=== PATIENT | male | born 1960 | race Caucasian/White ===

== ENCOUNTER 2023-02-12 16:44 | Inpatient (IN) | payer MEDICAID ==
[~2023-02-12] VITALS: Ht 175.3 cm; Wt 91.3 kg
[2023-02-12] MEDS ORDERED: normal saline 1000ML IV soln IVB ONE (17:05)
[2023-02-12] MEDS ORDERED: normal saline 1000ml 1,000 ML IV ONE (17:05)
[2023-02-12 17:40] LABS: BASOPHILS % (AUTO) 0.3 % (0-1); EOSINOPHILS % (AUTO) 0.1 % (0-6); HEMATOCRIT 40.6 % (42.0-52.0); HEMOGLOBIN 12.8 g/dl (14.0-17.9); LYMPHOCYTES # (AUTO) 0.7 X10'3 (1.1-4.8); LYMPHOCYTES % (AUTO) 5.6 % (21-51); MEAN CORPUSCULAR HEMOGLOBIN 24.7 PG (27.0-31.0); MEAN CORPUSCULAR HGB CONC 31.5 g/dL (33.0-36.5); MEAN CORPUSCULAR VOLUME 78.3 FL (78-98); MEAN PLATELET VOLUME 8.4 FL (7.4-10.4); MONOCYTES # (AUTO) 0.6 X10'3 (0-0.9); MONOCYTES % (AUTO) 5.1 % (2-12); NEUTROPHILS # (AUTO) 10.8 X10'3 (1.8-7.7); NEUTROPHILS % (AUTO) 88.9 % (42-75); PLATELET COUNT 241 X10'3 (140-440); RED BLOOD COUNT 5.19 X10'6 (4.70-6.10); RED CELL DISTRIBUTION WIDTH 18.9 % (11.5-14.5); WHITE BLOOD COUNT 12.2 X10'3 (4.5-11.0)
[2023-02-12] MEDS ORDERED: meperidine/PF 50mg/ml syringe IV ONE (18:00)
[2023-02-12 18:03] LABS: ALANINE AMINOTRANSFERASE 21 U/L (12-78); ALBUMIN 3.5 G/DL (3.4-5.0); ALBUMIN/GLOBULIN RATIO 0.9 (1.1-1.5); ALKALINE PHOSPHATASE 90 IU/L (46-116); ANION GAP 10 (8-16); ANISOCYTOSIS 2+; ASPARTATE AMINO TRANSFERASE 24 U/L (10-37); BILIRUBIN,TOTAL 0.5 MG/DL (0.1-1.0); BLOOD UREA NITROGEN 8 MG/DL (7-18); BUN/CREATININE RATIO 7.5 (10.0-20.0); CHLORIDE 103 MMOL/L (99-107); CREATININE 1.07 MG/DL (0.60-1.10); GLUCOSE 136 MG/DL (70-104); HYPOCHROMASIA 1+; MICROCYTOSIS 1+; PLATELET ESTIMATE NORMAL; POLYCHROMASIA FEW; POTASSIUM 4.4 MMOL/L (3.5-5.1); SODIUM 136 MMOL/L (135-145); TOTAL CARBON DIOXIDE 23.1 MMOL/L (24-32); TOTAL CELLS COUNTED 100; TOTAL PROTEIN 7.3 G/DL (6.4-8.2); eGFR 70 ML/MIN
[2023-02-12 18:09] LABS: ETHANOL < 0.010 GM/DL (0.0-0.010); LIPASE 55 U/L (73-393)
[2023-02-12] MEDS ORDERED: mag hydrox/Alum hydrox/simeth 30ml oral suspension PO PRN (18:10)
[2023-02-12] MEDS ORDERED: acetaminophen 325mg tablet PO PRN ×2 (18:10)
[2023-02-12] MEDS ORDERED: magnesium Cl slow-release 64mg tablet PO PRN (18:10)
[2023-02-12] MEDS ORDERED: potassium Cl 40MEQ/1/2NS 520ml 520 ML IV PRN (18:10)
[2023-02-12] MEDS ORDERED: magnesium 2GM in 50ml NS 50 ML IV PRN (18:10)
[2023-02-12] MEDS ORDERED: potassium Cl 20 mEq SR tablet PO PRN ×2 (18:10)
[2023-02-12] MEDS ORDERED: magnesium 4gm in 100ml NS 100 ML IV PRN (18:10)
[2023-02-12 18:28] LABS: APTT 26 SECONDS (22-32)
[2023-02-12] MEDS ORDERED: piperacillin/tazo 4.5gm/100ml 100 ML IV ONE (18:30)
[2023-02-12] MEDS ORDERED: morphine 2 MG/ML inj. syringe IV PRN (18:55)
[2023-02-12] MEDS ORDERED: HYDROcodone/acetaminophen 5mg/325mg tablet PO PRN (18:55)
[2023-02-12] MEDS ORDERED: diphenhydrAMINE 25mg capsule PO PRN (19:10)
[2023-02-12] MEDS: normal saline 1000ml 1,000 ML IV SCH ×2 (19:18→23:20)
[2023-02-12] MEDS: pantoprazole 40mg Tablet.DR PO SCH ×2 (19:18→20:00)
[2023-02-12] MEDS: docusate sod 100mg capsule PO SCH (20:00)
[2023-02-12] MEDS: ondansetron/PF 4mg/2ml inj IV PRN (20:48)
[2023-02-12] MEDS: morphine 2 MG/ML inj. syringe IV PRN (20:48)
[2023-02-12] MEDS: enoxaparin 40mg/0.4ml syringe SQ SCH (21:02)
--- NOTE | 2023-02-12 22:45 | NUR ---
Patient in room PCU 3028. I have received report from Shane GONSALES RN and had the opportunity to ask questions and assume patient care.
--- NOTE | 2023-02-12 22:46 | NUR ---
REPORT CALLED TO FLOOR NURSE DERIAN SPENCER, TX TO ROOM 3026E BY TECH
[2023-02-12 23:00] VITALS: BP 168/83
[2023-02-12] MEDS: piperacillin/tazo 3.375gm/50ml 50 ML IV SCH (23:44)
[2023-02-13] VITALS (20 sets, daily range): BP systolic 86–186; BP diastolic 31–92
[2023-02-13] MEDS: morphine 2 MG/ML inj. syringe IV PRN ×4 (01:39→23:30)
[2023-02-13] MEDS: piperacillin/tazo 3.375gm/50ml 50 ML IV SCH ×2 (06:55→16:00)
[2023-02-13] MEDS: pantoprazole 40mg Tablet.DR PO SCH (06:55)
[2023-02-13] MEDS: nicotine 14mg patch - 24hr TD SCH (06:56)
[2023-02-13] MEDS: docusate sod 100mg capsule PO SCH (06:56)
--- NOTE | 2023-02-13 07:03 | NUR ---
Problems reprioritized. Patient report given, questions answered & plan of care reviewed with Mihai SPENCER.
[2023-02-13 07:30] LABS: ALANINE AMINOTRANSFERASE 19 U/L (12-78); ALBUMIN/GLOBULIN RATIO 0.8 (1.1-1.5); ALKALINE PHOSPHATASE 82 IU/L (46-116); ANION GAP 8 (8-16); ASPARTATE AMINO TRANSFERASE 26 U/L (10-37); BILIRUBIN,TOTAL 0.7 MG/DL (0.1-1.0); BLOOD UREA NITROGEN 7 MG/DL (7-18); BUN/CREATININE RATIO 6.3 (10.0-20.0); CALCIUM 8.5 MG/DL (8.5-10.1); CHLORIDE 101 MMOL/L (99-107); CREATININE 1.11 MG/DL (0.60-1.10); GLUCOSE 114 MG/DL (70-104); SODIUM 133 MMOL/L (135-145); TOTAL PROTEIN 6.6 G/DL (6.4-8.2); eGFR 67 ML/MIN
[2023-02-13 08:59] LABS: BASOPHILS # (AUTO) 0.1 X10'3 (0-0.2); BASOPHILS % (AUTO) 0.5 % (0-1); EOSINOPHILS % (AUTO) 0.2 % (0-6); HEMATOCRIT 36.2 % (42.0-52.0); HEMOGLOBIN 11.5 g/dl (14.0-17.9); LYMPHOCYTES # (AUTO) 0.6 X10'3 (1.1-4.8); LYMPHOCYTES % (AUTO) 5.6 % (21-51); MEAN CORPUSCULAR HEMOGLOBIN 24.6 PG (27.0-31.0); MEAN CORPUSCULAR HGB CONC 31.7 g/dL (33.0-36.5); MEAN CORPUSCULAR VOLUME 77.6 FL (78-98); MEAN PLATELET VOLUME 8.5 FL (7.4-10.4); MONOCYTES % (AUTO) 8.6 % (2-12); NEUTROPHILS # (AUTO) 9.9 X10'3 (1.8-7.7); NEUTROPHILS % (AUTO) 85.1 % (42-75); PLATELET COUNT 207 X10'3 (140-440); RED BLOOD COUNT 4.67 X10'6 (4.70-6.10); RED CELL DISTRIBUTION WIDTH 18.8 % (11.5-14.5); WHITE BLOOD COUNT 11.6 X10'3 (4.5-11.0)
[2023-02-13] MEDS ORDERED: lisinopril 10 MG tablet PO ONE (09:10)
[2023-02-13 10:05] LABS: BASOPHILS % (AUTO) 0.1 % (0-1); EOSINOPHILS % (AUTO) 0.1 % (0-6); HEMATOCRIT 37.5 % (42.0-52.0); HEMOGLOBIN 12.1 g/dl (14.0-17.9); LYMPHOCYTES # (AUTO) 0.3 X10'3 (1.1-4.8); MEAN CORPUSCULAR HEMOGLOBIN 25.2 PG (27.0-31.0); MEAN CORPUSCULAR HGB CONC 32.4 g/dL (33.0-36.5); MEAN CORPUSCULAR VOLUME 77.8 FL (78-98); MEAN PLATELET VOLUME 8.6 FL (7.4-10.4); MONOCYTES % (AUTO) 0.7 % (2-12); NEUTROPHILS # (AUTO) 4.8 X10'3 (1.8-7.7); NEUTROPHILS % (AUTO) 94.1 % (42-75); PLATELET COUNT 216 X10'3 (140-440); RED BLOOD COUNT 4.82 X10'6 (4.70-6.10); RED CELL DISTRIBUTION WIDTH 18.8 % (11.5-14.5); WHITE BLOOD COUNT 5.2 X10'3 (4.5-11.0)
[2023-02-13] MEDS ORDERED: normal saline 500ml IV soln 500 ML IV ONE (10:30)
[2023-02-13] MEDS ORDERED: NO HOME MEDS (13:10)
[2023-02-13] MEDS: normal saline 1000ml 1,000 ML IV SCH (14:19)
[2023-02-13] MEDS ORDERED: BUPIVAcaine/PF 2.5 mg/ml (0.25%) 30ml vial ONE (16:43)
[2023-02-13] MEDS ORDERED: morphine 2 MG/ML inj. syringe IV PRN (16:50)
[2023-02-13] MEDS ORDERED: fentaNYL/PF 50MCG/1 ML 2ML syringe IV PRN (16:50)
[2023-02-13] MEDS ORDERED: ringers solution, lacted 1,000 ML IV SCH (16:50)
[2023-02-13] MEDS ORDERED: ondansetron/PF 4mg/2ml inj IV PRN (16:50)
[2023-02-13] MEDS ORDERED: labetalol 20mg/4ml (5mg/ml) syringe IV PRN (16:50)
[2023-02-13] MEDS ORDERED: hydrALAZINE 20mg/ml inj. IV PRN (16:50)
[2023-02-13] MEDS ORDERED: fentaNYL/PF 50MCG/1 ML 2ML syringe ONE ×3 (16:56→19:58)
[2023-02-13] MEDS ORDERED: midazolam 1 mg/ML 2ml injection ONE (16:56)
[2023-02-13] MEDS ORDERED: rocuronium 10mg/ml inj IV ONE ×2 (17:09→18:11)
[2023-02-13] MEDS ORDERED: LIDOcaine 2% (20mg/ml) 5ml vial ONE (17:09)
[2023-02-13] MEDS ORDERED: propofol inj 20 ML IV ONE (17:09)
[2023-02-13] MEDS ORDERED: ondansetron/PF 4mg/2ml inj ONE (17:10)
[2023-02-13] MEDS ORDERED: ceFAZolin 1000mg inj ONE ×2 (17:14)
[2023-02-13] MEDS ORDERED: phenylephrine 10mg/ml inj. -priapism dosing ONE (17:51)
[2023-02-13] MEDS ORDERED: dexmedetomidine 200mcg/2ml inj. IV ONE (17:54)
[2023-02-13] MEDS ORDERED: sugammadex 200mg/2ml injection IV ONE (17:54)
[2023-02-13] MEDS ORDERED: glycopyrrolate 0.2mg/ml inj ONE (19:56)
[2023-02-13] MEDS ORDERED: neostigmine methylsulfate 1 MG/ML 10ml vial ONE (19:56)
[2023-02-13] MEDS ORDERED: naloxone 0.4 mg/ml inj IV PRN (20:00)
[2023-02-13] MEDS: morphine 4 MG/ML inj SYRINge IV PRN ×3 (20:22→21:35)
[2023-02-13] MEDS: fentaNYL/PF 50MCG/1 ML 2ML syringe IV PRN ×3 (20:24→21:57)
[2023-02-13 21:38] LABS: ABG BASE EXCESS -6.7 mmol/L (-2.0-2.0); ABG HCO3 18.5 mmol/L (22.0-26.0); ABG OXYGEN SATURATION 90.5 % (94-97); ABG PCO2 (T) 36.1 mmHg (35.0-48.0); FCOHb 0.9 % (0.0-3.9); FLOW 10 L/min; FMetHb 0.3 % (0.0-1.5); FO2Hb 89.4 % (94-97); PATIENT TEMPERATURE 37.1; TOTAL HEMOGLOBIN 11.1 G/dl (14.0-17.9)
--- NOTE | 2023-02-13 22:09 | NUR ---
PATIENT TAKEN TO ICU PER DR SCHULTZ. U WILL SEND ALL BELONGINGS TO NEW ROOM.TRANSPORTED ON MONITORS AND HOOKED UP TO ICU MONITORS IN ROOM AND REPORT GIVEN TO RN WHO HAS TAKEN OVER PATIENT CARE. Addendum: 02/13/23 at 2220 by Mariela Moreno RN Amended: Links added.
--- NOTE | 2023-02-13 22:45 | NUR ---
received patient (pt) from recovery room to . Report and chart received from Shabnam SPENCER and questions answered. Pt transferred to ICU bed, placed on monitors, and supplemental O2 continued at 8LPM simple mask. Pt a little groggy but able A&O x4, moves all extremities, and CSM intact. Pt's pain is controlled at this time. 4 lap incision sites present on abdomen, dressings clean, dry, and intact. VICTOR HUGO drain present to right upper quadrant draining moderate amount of merlos output. Dr. Anaya arrived at bedside to check on pt. He was updated on VICTOR HUGO output received orders Addendum: 02/14/23 at 0453 by Masha Laws RN parameters to maintain SBP greater than 90mmHg and/or MAP greater than 70mmHg.
[2023-02-14] VITALS (25 sets, daily range): BP systolic 88–112; BP diastolic 44–67
[2023-02-14] MEDS: enoxaparin 40mg/0.4ml syringe SQ SCH (00:07)
[2023-02-14] MEDS: pantoprazole 40mg Tablet.DR PO SCH ×2 (00:07→08:07)
[2023-02-14] MEDS: docusate sod 100mg capsule PO SCH ×2 (00:07→08:07)
[2023-02-14] MEDS: normal saline 1000ml 1,000 ML IV SCH ×2 (00:10→15:19)
[2023-02-14] MEDS: piperacillin/tazo 3.375gm/50ml 50 ML IV SCH ×2 (00:21→08:07)
[2023-02-14] MEDS ORDERED: NORepinephrine 8mg/ 250ml NS 250 ML IV PRN (00:35)
[2023-02-14] MEDS: ondansetron/PF 4mg/2ml inj IV PRN (01:25)
[2023-02-14] MEDS: HYDROcodone/acetaminophen 10/325mg tab PO PRN ×5 (01:26→23:12)
--- NOTE | 2023-02-14 01:45 | NUR ---
Pt able to sleep off and on. He wakes easily and answers questions appropriately. Pt is painful but morphine does help. Pt educated on splinting his abdomen when coughing which is also helping with the pain. Due to pt's BP being decreased Levophed started per Dr. Anaya's order.
[2023-02-14] MEDS: morphine 2 MG/ML inj. syringe IV PRN ×4 (03:36→18:59)
[2023-02-14 06:29] LABS: BASOPHILS % (AUTO) 0.2 % (0-1); EOSINOPHILS % (AUTO) 0 % (0-6); HEMATOCRIT 36.6 % (42.0-52.0); HEMOGLOBIN 11.4 g/dl (14.0-17.9); LYMPHOCYTES # (AUTO) 0.5 X10'3 (1.1-4.8); LYMPHOCYTES % (AUTO) 3.6 % (21-51); MEAN CORPUSCULAR HGB CONC 31.2 g/dL (33.0-36.5); MEAN CORPUSCULAR VOLUME 80.2 FL (78-98); MEAN PLATELET VOLUME 8.8 FL (7.4-10.4); MONOCYTES # (AUTO) 0.9 X10'3 (0-0.9); MONOCYTES % (AUTO) 6.5 % (2-12); NEUTROPHILS # (AUTO) 11.7 X10'3 (1.8-7.7); NEUTROPHILS % (AUTO) 89.7 % (42-75); PLATELET COUNT 216 X10'3 (140-440); RED BLOOD COUNT 4.57 X10'6 (4.70-6.10)
--- NOTE | 2023-02-14 06:32 | NUR ---
Problems reprioritized. Patient report given, questions answered & plan of care reviewed with Clayton SPENCER.
[2023-02-14 06:42] LABS: ALANINE AMINOTRANSFERASE 114 U/L (12-78); ALBUMIN 2.7 G/DL (3.4-5.0); ALBUMIN/GLOBULIN RATIO 0.7 (1.1-1.5); ALKALINE PHOSPHATASE 66 IU/L (46-116); ANION GAP 9 (8-16); ASPARTATE AMINO TRANSFERASE 180 U/L (10-37); BILIRUBIN,TOTAL 0.8 MG/DL (0.1-1.0); BLOOD UREA NITROGEN 22 MG/DL (7-18); BUN/CREATININE RATIO 7.9 (10.0-20.0); CALCIUM 8.1 MG/DL (8.5-10.1); CHLORIDE 102 MMOL/L (99-107); GLUCOSE 123 MG/DL (70-104); SODIUM 133 MMOL/L (135-145); TOTAL CARBON DIOXIDE 22.2 MMOL/L (24-32); TOTAL PROTEIN 6.7 G/DL (6.4-8.2); eGFR 23 ML/MIN
[2023-02-14] MEDS: nicotine 14mg patch - 24hr TD SCH (08:06)
[2023-02-14] MEDS: ciprofloxacin lact 400MG/200ML 200 ML IV SCH ×2 (09:40→20:50)
[2023-02-14] MEDS: metroNIDAZOLE-Flagyl 500mg/NS 100 ML IV SCH ×2 (09:40→20:45)
[2023-02-14 10:17] LABS: PHOSPHORUS 4.5 MG/DL (2.3-4.5)
[2023-02-14] MEDS: dextrose 5%-normal saline 1,000 ML IV SCH ×2 (11:45→18:25)
[2023-02-14 13:54] LABS: ALBUMIN 2.5 G/DL (3.4-5.0); ANION GAP 9 (8-16); BLOOD UREA NITROGEN 27 MG/DL (7-18); BUN/CREATININE RATIO 9.5 (10.0-20.0); CALCIUM 7.9 MG/DL (8.5-10.1); CHLORIDE 99 MMOL/L (99-107); CREATININE 2.84 MG/DL (0.60-1.10); GLUCOSE 116 MG/DL (70-104); POTASSIUM 4.6 MMOL/L (3.5-5.1); SODIUM 134 MMOL/L (135-145); TOTAL CARBON DIOXIDE 25.8 MMOL/L (24-32); eGFR 23 ML/MIN
[2023-02-15] VITALS (16 sets, daily range): BP systolic 90–139; BP diastolic 59–82
[2023-02-15] MEDS: dextrose 5%-normal saline 1,000 ML IV SCH ×4 (01:19→22:01)
[2023-02-15] MEDS: morphine 2 MG/ML inj. syringe IV PRN ×2 (04:08→22:25)
[2023-02-15 07:03] LABS: ALANINE AMINOTRANSFERASE 86 U/L (12-78); ALBUMIN 2.3 G/DL (3.4-5.0); ALBUMIN/GLOBULIN RATIO 0.6 (1.1-1.5); ALKALINE PHOSPHATASE 60 IU/L (46-116); ANION GAP 9 (8-16); ASPARTATE AMINO TRANSFERASE 86 U/L (10-37); BILIRUBIN,TOTAL 0.4 MG/DL (0.1-1.0); BLOOD UREA NITROGEN 19 MG/DL (7-18); BUN/CREATININE RATIO 9.4 (10.0-20.0); CALCIUM 7.4 MG/DL (8.5-10.1); CHLORIDE 103 MMOL/L (99-107); CREATININE 2.02 MG/DL (0.60-1.10); GLUCOSE 99 MG/DL (70-104); POTASSIUM 3.9 MMOL/L (3.5-5.1); SODIUM 135 MMOL/L (135-145); TOTAL CARBON DIOXIDE 23.3 MMOL/L (24-32); TOTAL PROTEIN 6.1 G/DL (6.4-8.2); eGFR 34 ML/MIN
[2023-02-15] MEDS: metroNIDAZOLE-Flagyl 500mg/NS 100 ML IV SCH ×2 (07:10→20:06)
[2023-02-15] MEDS: ciprofloxacin lact 400MG/200ML 200 ML IV SCH ×2 (07:10→22:13)
[2023-02-15] MEDS: enoxaparin 30mg/0.3ml syringe SUBCUT SCH (07:11)
[2023-02-15] MEDS: HYDROcodone/acetaminophen 10/325mg tab PO PRN ×4 (07:11→19:48)
[2023-02-15] MEDS: nicotine 14mg patch - 24hr TD SCH (07:12)
--- NOTE | 2023-02-15 10:15 | NUR ---
Jagdish to transfer patient per Dr. Leavitt covering for Dr. Anaya.
--- NOTE | 2023-02-15 10:30 | NUR ---
Pt transferred to 3012-C with all belongings. Brooke given report; all questions answered.
--- NOTE | 2023-02-15 10:30 | NUR ---
Patient in room PCU 3012. I have received report from Tacos SPENCER and had the opportunity to ask questions and assume patient care.
--- NOTE | 2023-02-15 10:45 | NUR ---
Patient transferred up to PCU.
--- NOTE | 2023-02-15 11:15 | NUR ---
Patient settled in room 3012 bed C. He has moderate pain at this time-pain med given. Tele monitor 6.
[2023-02-15 11:23] LABS: BASOPHILS % (AUTO) 0.4 % (0-1); EOSINOPHILS % (AUTO) 0.5 % (0-6); HEMOGLOBIN 11.2 g/dl (14.0-17.9); LYMPHOCYTES # (AUTO) 0.4 X10'3 (1.1-4.8); LYMPHOCYTES % (AUTO) 5.9 % (21-51); MEAN CORPUSCULAR HEMOGLOBIN 24.9 PG (27.0-31.0); MEAN CORPUSCULAR VOLUME 80.4 FL (78-98); MEAN PLATELET VOLUME 8.7 FL (7.4-10.4); MONOCYTES # (AUTO) 0.5 X10'3 (0-0.9); MONOCYTES % (AUTO) 6.5 % (2-12); NEUTROPHILS # (AUTO) 6.4 X10'3 (1.8-7.7); NEUTROPHILS % (AUTO) 86.7 % (42-75); PLATELET COUNT 162 X10'3 (140-440); RED BLOOD COUNT 4.48 X10'6 (4.70-6.10); RED CELL DISTRIBUTION WIDTH 19.6 % (11.5-14.5); WHITE BLOOD COUNT 7.4 X10'3 (4.5-11.0)
[2023-02-15 11:40] LABS: ANISOCYTOSIS 2+; MICROCYTOSIS 1+; PLATELET ESTIMATE NORMAL; ROULEAUX 1+
--- NOTE | 2023-02-15 19:11 | NUR ---
Problems reprioritized. Patient report given, questions answered & plan of care reviewed with Linette RIVER CROSSING SUPERVISOR.
--- NOTE | 2023-02-15 20:15 | NUR ---
TAIL WORKER documentation: I have reviewed and agree with all interventions, assessments performed and documented by Linette Patrick LVN.
[2023-02-16] MEDS: HYDROcodone/acetaminophen 10/325mg tab PO PRN ×4 (02:18→20:32)
[2023-02-16 03:00] VITALS: BP 138/80
[2023-02-16] MEDS: dextrose 5%-normal saline 1,000 ML IV SCH (06:01)
[2023-02-16] MEDS: nicotine 14mg patch - 24hr TD SCH (07:41)
[2023-02-16] MEDS: ciprofloxacin lact 400MG/200ML 200 ML IV SCH ×2 (07:42→23:07)
[2023-02-16] MEDS: metroNIDAZOLE-Flagyl 500mg/NS 100 ML IV SCH ×2 (07:42→20:31)
[2023-02-16] MEDS: enoxaparin 30mg/0.3ml syringe SUBCUT SCH (07:43)
[2023-02-16 07:48] LABS: ALANINE AMINOTRANSFERASE 60 U/L (12-78); ALBUMIN 2.1 G/DL (3.4-5.0); ALBUMIN/GLOBULIN RATIO 0.5 (1.1-1.5); ALKALINE PHOSPHATASE 62 IU/L (46-116); ANION GAP 8 (8-16); ASPARTATE AMINO TRANSFERASE 44 U/L (10-37); BILIRUBIN,TOTAL 0.4 MG/DL (0.1-1.0); BLOOD UREA NITROGEN 12 MG/DL (7-18); BUN/CREATININE RATIO 8.2 (10.0-20.0); CALCIUM 8.1 MG/DL (8.5-10.1); CHLORIDE 105 MMOL/L (99-107); CREATININE 1.47 MG/DL (0.60-1.10); GLUCOSE 103 MG/DL (70-104); POTASSIUM 3.8 MMOL/L (3.5-5.1); SODIUM 137 MMOL/L (135-145); TOTAL CARBON DIOXIDE 24.2 MMOL/L (24-32); TOTAL PROTEIN 6.4 G/DL (6.4-8.2); eGFR 48 ML/MIN
[2023-02-16 08:02] LABS: BASOPHILS % (AUTO) 0.5 % (0-1); EOSINOPHILS # (AUTO) 0.1 X10'3 (0-0.9); EOSINOPHILS % (AUTO) 1.1 % (0-6); HEMATOCRIT 30.7 % (42.0-52.0); HEMOGLOBIN 9.8 g/dl (14.0-17.9); LYMPHOCYTES # (AUTO) 0.4 X10'3 (1.1-4.8); LYMPHOCYTES % (AUTO) 5.1 % (21-51); MEAN CORPUSCULAR HEMOGLOBIN 25.2 PG (27.0-31.0); MEAN CORPUSCULAR HGB CONC 31.9 g/dL (33.0-36.5); MEAN CORPUSCULAR VOLUME 79.1 FL (78-98); MEAN PLATELET VOLUME 8.8 FL (7.4-10.4); MONOCYTES # (AUTO) 0.7 X10'3 (0-0.9); MONOCYTES % (AUTO) 8.7 % (2-12); NEUTROPHILS # (AUTO) 6.9 X10'3 (1.8-7.7); NEUTROPHILS % (AUTO) 84.6 % (42-75); PLATELET COUNT 200 X10'3 (140-440); RED BLOOD COUNT 3.89 X10'6 (4.70-6.10); RED CELL DISTRIBUTION WIDTH 18.9 % (11.5-14.5); WHITE BLOOD COUNT 8.2 X10'3 (4.5-11.0)
[2023-02-16 11:00] VITALS: BP 134/94
[2023-02-16 15:00] VITALS: BP 143/80
--- NOTE | 2023-02-16 15:45 | NUR ---
Midline peripheral line is intact and flushes with resistance. A hard stick : we will keep line in place for emergency access.
[2023-02-16 18:00] VITALS: BP 124/98
[2023-02-16 22:00] VITALS: BP 123/71
--- NOTE | 2023-02-16 22:05 | NUR ---
IV constantly alarmin high pressure. FLushes although positional. Pt. offered by several different RN to have new IV placed. Pt. states "I'd rather listen to that thing beep all night than to have someone try to place an IV.".
[2023-02-17 02:00] VITALS: BP 148/79
[2023-02-17] MEDS: HYDROcodone/acetaminophen 10/325mg tab PO PRN ×5 (02:45→23:29)
--- NOTE | 2023-02-17 02:59 | NUR ---
PAGER ID: [phone] MESSAGE: Tobias Llanos 3012C Pt. posterior LS wheezing. Persistent hacking cough with sputum production. Can RT treat? breathing tx? cxr. Cant read reports. Amparo [id number]
--- NOTE | 2023-02-17 05:29 | NUR ---
PAGER ID: [phone] MESSAGE: Tobias Llanos 3012C Pt. posterior LS wheezing. Persistent hacking cough with sputum production. Can RT treat? breathing tx? Amparo [phone]
[2023-02-17 06:09] LABS: BASOPHILS % (AUTO) 0.5 % (0-1); EOSINOPHILS # (AUTO) 0.2 X10'3 (0-0.9); EOSINOPHILS % (AUTO) 2.3 % (0-6); HEMATOCRIT 30.9 % (42.0-52.0); HEMOGLOBIN 9.9 g/dl (14.0-17.9); LYMPHOCYTES # (AUTO) 0.6 X10'3 (1.1-4.8); LYMPHOCYTES % (AUTO) 7.5 % (21-51); MEAN CORPUSCULAR HEMOGLOBIN 24.9 PG (27.0-31.0); MEAN CORPUSCULAR VOLUME 77.9 FL (78-98); MEAN PLATELET VOLUME 8.7 FL (7.4-10.4); MONOCYTES % (AUTO) 12.3 % (2-12); NEUTROPHILS # (AUTO) 6.5 X10'3 (1.8-7.7); NEUTROPHILS % (AUTO) 77.4 % (42-75); PLATELET COUNT 218 X10'3 (140-440); RED BLOOD COUNT 3.97 X10'6 (4.70-6.10); RED CELL DISTRIBUTION WIDTH 18.6 % (11.5-14.5); WHITE BLOOD COUNT 8.3 X10'3 (4.5-11.0)
[2023-02-17 06:21] LABS: ALANINE AMINOTRANSFERASE 48 U/L (12-78); ALBUMIN 2.3 G/DL (3.4-5.0); ALBUMIN/GLOBULIN RATIO 0.6 (1.1-1.5); ALKALINE PHOSPHATASE 68 IU/L (46-116); ANION GAP 5 (8-16); ASPARTATE AMINO TRANSFERASE 28 U/L (10-37); BILIRUBIN,TOTAL 0.4 MG/DL (0.1-1.0); BLOOD UREA NITROGEN 10 MG/DL (7-18); CALCIUM 8.7 MG/DL (8.5-10.1); CHLORIDE 105 MMOL/L (99-107); CREATININE 1.43 MG/DL (0.60-1.10); GLUCOSE 106 MG/DL (70-104); POTASSIUM 4.1 MMOL/L (3.5-5.1); SODIUM 138 MMOL/L (135-145); TOTAL CARBON DIOXIDE 27.8 MMOL/L (24-32); TOTAL PROTEIN 6.4 G/DL (6.4-8.2); eGFR 50 ML/MIN
[2023-02-17] MEDS ORDERED: ipratropium/albuterol 3ml nebule ONE (06:24)
[2023-02-17] MEDS ORDERED: ciprofloxacin/D5W 200mg/100mL 100 ML IV SCH ×2 (06:27→11:00)
[2023-02-17 07:15] VITALS: BP 127/77
--- NOTE | 2023-02-17 08:44 | NUR ---
Gave report to Alisha SPENCER.
[2023-02-17 09:06] LABS: ANISOCYTOSIS 2+; MICROCYTOSIS 1+; PLATELET ESTIMATE NORMAL; SCHISTOCYTES FEW
[2023-02-17 09:07] LABS: HYPOCHROMASIA 1+
--- NOTE | 2023-02-17 09:30 | NUR ---
Patient in room PCU 3012. I have received report from Amparo SPENCER and had the opportunity to ask questions and assume patient care.
[2023-02-17] MEDS: nicotine 14mg patch - 24hr TD SCH (09:59)
[2023-02-17] MEDS: metroNIDAZOLE-Flagyl 500mg/NS 100 ML IV SCH ×2 (09:59→19:56)
[2023-02-17] MEDS: enoxaparin 30mg/0.3ml syringe SUBCUT SCH (10:00)
[2023-02-17] MEDS: ipratropium/albuterol 3ml nebule NEB PRN ×2 (10:40→14:48)
[2023-02-17 11:00] VITALS: BP 112/76
[2023-02-17 18:00] VITALS: BP 148/92
--- NOTE | 2023-02-17 18:50 | NUR ---
Patient in room PCU 3012. I have received report from Alisha SPENCER and had the opportunity to ask questions and assume patient care.
--- NOTE | 2023-02-17 19:00 | NUR ---
Patient in room PCU 3012. I have received report from Alisha SPENCER and had the opportunity to ask questions and assume patient care.
--- NOTE | 2023-02-17 19:07 | NUR ---
Problems reprioritized. Patient report given, questions answered & plan of care reviewed with Elma SPENCER.
[2023-02-17 22:00] VITALS: BP 133/80
[2023-02-17] MEDS: CIPROFLOXACIN 400MG/200ML premix IV SCH (23:00)
[2023-02-18] MEDS: HYDROcodone/acetaminophen 10/325mg tab PO PRN ×4 (05:11→22:23)
[2023-02-18 06:28] LABS: BASOPHILS # (AUTO) 0.1 X10'3 (0-0.2); BASOPHILS % (AUTO) 0.9 % (0-1); EOSINOPHILS # (AUTO) 0.2 X10'3 (0-0.9); EOSINOPHILS % (AUTO) 2.8 % (0-6); HEMATOCRIT 31.2 % (42.0-52.0); LYMPHOCYTES # (AUTO) 0.7 X10'3 (1.1-4.8); LYMPHOCYTES % (AUTO) 10.5 % (21-51); MEAN CORPUSCULAR HEMOGLOBIN 24.8 PG (27.0-31.0); MEAN CORPUSCULAR VOLUME 77.6 FL (78-98); MEAN PLATELET VOLUME 8.3 FL (7.4-10.4); MONOCYTES # (AUTO) 0.9 X10'3 (0-0.9); MONOCYTES % (AUTO) 13.2 % (2-12); NEUTROPHILS # (AUTO) 5.1 X10'3 (1.8-7.7); NEUTROPHILS % (AUTO) 72.6 % (42-75); PLATELET COUNT 245 X10'3 (140-440); RED BLOOD COUNT 4.02 X10'6 (4.70-6.10); RED CELL DISTRIBUTION WIDTH 18.2 % (11.5-14.5)
[2023-02-18 06:30] VITALS: BP 146/84
[2023-02-18 06:34] LABS: % IRON SATURATION 6 % (11-46); IRON 13 UG/DL (53-167); TOTAL IRON BINDING CAPACITY 215 UG/DL (259-388)
[2023-02-18 06:39] LABS: ALANINE AMINOTRANSFERASE 33 U/L (12-78); ALBUMIN 2.2 G/DL (3.4-5.0); ALBUMIN/GLOBULIN RATIO 0.5 (1.1-1.5); ALKALINE PHOSPHATASE 63 IU/L (46-116); ANION GAP 9 (8-16); ASPARTATE AMINO TRANSFERASE 24 U/L (10-37); BILIRUBIN,TOTAL 0.4 MG/DL (0.1-1.0); BLOOD UREA NITROGEN 9 MG/DL (7-18); CALCIUM 8.6 MG/DL (8.5-10.1); CHLORIDE 105 MMOL/L (99-107); CREATININE 1.29 MG/DL (0.60-1.10); GLUCOSE 103 MG/DL (70-104); POTASSIUM 3.3 MMOL/L (3.5-5.1); SODIUM 139 MMOL/L (135-145); TOTAL CARBON DIOXIDE 24.9 MMOL/L (24-32); TOTAL PROTEIN 6.3 G/DL (6.4-8.2); eGFR 56 ML/MIN
--- NOTE | 2023-02-18 06:50 | NUR ---
Problems reprioritized. Patient report given, questions answered & plan of care reviewed with Heydi RN.
[2023-02-18] MEDS ORDERED: potassium Cl 40MEQ/1/2NS 520ml 520 ML IV PRN (07:55)
[2023-02-18] MEDS ORDERED: magnesium 4gm in 100ml NS 100 ML IV PRN (07:55)
[2023-02-18] MEDS ORDERED: potassium Cl 20 mEq SR tablet PO PRN (07:55)
[2023-02-18] MEDS: K and/or MAG REPLACEMENT MC SCH ×2 (08:00→20:00)
[2023-02-18 08:48] LABS: MAGNESIUM 2.2 MG/DL (1.5-2.4)
[2023-02-18] MEDS: nicotine 14mg patch - 24hr TD SCH (10:12)
[2023-02-18] MEDS: metroNIDAZOLE-Flagyl 500mg/NS 100 ML IV SCH ×2 (10:13→22:27)
[2023-02-18] MEDS: docusate sod 100mg capsule PO SCH ×2 (10:13→22:22)
[2023-02-18] MEDS: enoxaparin 30mg/0.3ml syringe SUBCUT SCH (10:14)
[2023-02-18] MEDS: magnesium hydroxide 30ml (MOM) UD suspension PO PRN (10:25)
[2023-02-18] MEDS: potassium Cl 20 mEq SR tablet PO PRN ×2 (10:25→22:22)
[2023-02-18 11:00] VITALS: BP 138/80
[2023-02-18] MEDS: CIPROFLOXACIN 400MG/200ML premix IV SCH (11:57)
--- NOTE | 2023-02-18 14:52 | NUR ---
Initial: Pt admit DX acute cholecystitis s/p laparoscopic cholecystectomy 02/13 w/ post-op Ileus, acute renal failure secondary to dehydration improving, and post-op anemia per EMR. Pt initially NPO advanced to clear liquids 02/12 then full liquids 02/15 WB PO 0-25% clears w/ ~56% 3 days of documented full liquids meals not meeting nutrition needs. Pt now regressed to NPO yesterday returned to clear liquids starting WS tonight still without BM this admit per EMR. LINA garcia DO recommended Ensure Clear TIDWM and PN if pt to remain on restrictive clear liquids vs NPO since now day 6 poor nutrition status. Given poor nutrition intake 6 days, mild weakness, and BLE +1 edema pt meets minimum non-severe malnutrition criteria; DO notified. Noted -18.9kg same day via bed scaled wt; unsure of wt accuracy will use IBW for estimated needs until wt accuracy confirmed. LBM 02/12 started on routine colace BID today and received PRN MoM today per EMR. Will continue to monitor for further nutrition intervention needs this admit. Rec: 1. advance diet as medically indicated to regular 2. Ensure Clear TIDWM while on clear liquids; pending physician verification in EMR 3. IF remains on clear liquids vs NPO without bowel function return consider TPN vs PPN to meet nutrition needs 4. Routine bowel care 5. weekly wt Addendum: 02/18/23 at [address] Amended: Links added.
[2023-02-18] MEDS: iron sucrose complex injection 500 MG in normal saline 250ml IV soln 250 ML IV ONE (17:20)
[2023-02-18] MEDS: ascorbic acid 500mg tablet PO SCH (17:34)
[2023-02-18] MEDS: NUT.TX.IMPAIRED DIGEST FXN (Ensure Clear) 237 ML PO SCH (18:00)
--- NOTE | 2023-02-18 18:00 | NUR ---
Patient in room PCU 3012. I have received report from Heydi SPENCER and had the opportunity to ask questions and assume patient care.
[2023-02-18 18:30] VITALS: BP 162/88
--- NOTE | 2023-02-18 18:30 | NUR ---
Patient in room PCU 3012. I have received report from Heydi SPENCER and had the opportunity to ask questions and assume patient care.
[2023-02-18] MEDS: iron polysaccharide complex 150mg capsule PO SCH (20:00)
[2023-02-18 22:00] VITALS: BP 147/88
[2023-02-18] MEDS: ondansetron/PF 4mg/2ml inj IV PRN (22:33)
[2023-02-19] MEDS: CIPROFLOXACIN 400MG/200ML premix IV SCH ×2 (01:07→12:18)
[2023-02-19] MEDS: iron sucrose complex injection 500 MG in normal saline 250ml IV soln 250 ML IV ONE (02:23)
[2023-02-19] MEDS: HYDROcodone/acetaminophen 10/325mg tab PO PRN ×5 (04:00→21:11)
--- NOTE | 2023-02-19 06:19 | NUR ---
Problems reprioritized. Patient report given, questions answered & plan of care reviewed with Heydi RN.
[2023-02-19 06:59] VITALS: BP 147/78
[2023-02-19 07:40] LABS: BASOPHILS # (AUTO) 0.1 X10'3 (0-0.2); BASOPHILS % (AUTO) 0.9 % (0-1); EOSINOPHILS # (AUTO) 0.2 X10'3 (0-0.9); EOSINOPHILS % (AUTO) 3.3 % (0-6); HEMATOCRIT 31.6 % (42.0-52.0); LYMPHOCYTES # (AUTO) 0.8 X10'3 (1.1-4.8); LYMPHOCYTES % (AUTO) 12.4 % (21-51); MEAN CORPUSCULAR HEMOGLOBIN 24.7 PG (27.0-31.0); MEAN CORPUSCULAR HGB CONC 31.7 g/dL (33.0-36.5); MEAN CORPUSCULAR VOLUME 77.8 FL (78-98); MEAN PLATELET VOLUME 8.1 FL (7.4-10.4); MONOCYTES # (AUTO) 0.9 X10'3 (0-0.9); MONOCYTES % (AUTO) 14.9 % (2-12); NEUTROPHILS # (AUTO) 4.3 X10'3 (1.8-7.7); NEUTROPHILS % (AUTO) 68.5 % (42-75); PLATELET COUNT 283 X10'3 (140-440); RED BLOOD COUNT 4.06 X10'6 (4.70-6.10); RED CELL DISTRIBUTION WIDTH 18.6 % (11.5-14.5); WHITE BLOOD COUNT 6.4 X10'3 (4.5-11.0)
[2023-02-19] MEDS: magnesium hydroxide 30ml (MOM) UD suspension PO PRN (07:52)
[2023-02-19] MEDS: docusate sod 100mg capsule PO SCH ×2 (07:53→20:43)
[2023-02-19] MEDS: nicotine 14mg patch - 24hr TD SCH (07:53)
[2023-02-19] MEDS: iron polysaccharide complex 150mg capsule PO SCH ×2 (07:53→20:43)
[2023-02-19] MEDS: metroNIDAZOLE-Flagyl 500mg/NS 100 ML IV SCH ×2 (07:54→20:45)
[2023-02-19] MEDS: NUT.TX.IMPAIRED DIGEST FXN (Ensure Clear) 237 ML PO SCH ×3 (07:54→18:00)
[2023-02-19] MEDS: K and/or MAG REPLACEMENT MC SCH ×2 (08:00→20:00)
[2023-02-19] MEDS: nicotine 21mg patch - 24 hr TD SCH (08:00)
[2023-02-19] MEDS: ascorbic acid 500mg tablet PO SCH ×2 (08:06→17:10)
[2023-02-19 08:07] LABS: ALANINE AMINOTRANSFERASE 28 U/L (12-78); ALBUMIN 2.1 G/DL (3.4-5.0); ALBUMIN/GLOBULIN RATIO 0.5 (1.1-1.5); ALKALINE PHOSPHATASE 65 IU/L (46-116); ANION GAP 9 (8-16); ASPARTATE AMINO TRANSFERASE 25 U/L (10-37); BILIRUBIN,TOTAL 0.3 MG/DL (0.1-1.0); BLOOD UREA NITROGEN 11 MG/DL (7-18); BUN/CREATININE RATIO 8.7 (10.0-20.0); CALCIUM 8.6 MG/DL (8.5-10.1); CHLORIDE 107 MMOL/L (99-107); CREATININE 1.26 MG/DL (0.60-1.10); GLUCOSE 109 MG/DL (70-104); MAGNESIUM 2.3 MG/DL (1.5-2.4); POTASSIUM 3.9 MMOL/L (3.5-5.1); SODIUM 140 MMOL/L (135-145); TOTAL CARBON DIOXIDE 24.4 MMOL/L (24-32); TOTAL PROTEIN 6.4 G/DL (6.4-8.2); eGFR 58 ML/MIN
[2023-02-19] MEDS: enoxaparin 30mg/0.3ml syringe SUBCUT SCH (08:09)
[2023-02-19 11:00] VITALS: BP 141/81
[2023-02-19 11:40] VITALS: BP 141/81
[2023-02-19 16:00] VITALS: BP 148/91
[2023-02-19] MEDS: ipratropium/albuterol 3ml nebule NEB PRN (16:29)
[2023-02-19 18:00] VITALS: BP 110/77
--- NOTE | 2023-02-19 18:10 | NUR ---
Patient in room PCU 3012. I have received report from Hedyi SPENCER, and had the opportunity to ask questions and assume patient care.
[2023-02-19] MEDS: ciprofloxacin 250mg tablet PO SCH (21:12)
[2023-02-19 22:00] VITALS: BP 140/71
[2023-02-20] MEDS: HYDROcodone/acetaminophen 10/325mg tab PO PRN ×3 (02:07→12:50)
[2023-02-20 02:41] VITALS: BP 138/97
--- NOTE | 2023-02-20 06:17 | NUR ---
Problems reprioritized. Patient report given, questions answered & plan of care reviewed with Heydi RN. Pt stable at shift change.
[2023-02-20 07:06] VITALS: BP 130/76
[2023-02-20 07:16] LABS: BASOPHILS % (AUTO) 0.7 % (0-1); EOSINOPHILS # (AUTO) 0.2 X10'3 (0-0.9); EOSINOPHILS % (AUTO) 2.3 % (0-6); HEMATOCRIT 33.6 % (42.0-52.0); HEMOGLOBIN 10.3 g/dl (14.0-17.9); LYMPHOCYTES # (AUTO) 0.8 X10'3 (1.1-4.8); LYMPHOCYTES % (AUTO) 11.9 % (21-51); MEAN CORPUSCULAR HEMOGLOBIN 24.6 PG (27.0-31.0); MEAN CORPUSCULAR HGB CONC 30.7 g/dL (33.0-36.5); MEAN CORPUSCULAR VOLUME 80.2 FL (78-98); MEAN PLATELET VOLUME 8.3 FL (7.4-10.4); MONOCYTES # (AUTO) 0.9 X10'3 (0-0.9); MONOCYTES % (AUTO) 12.1 % (2-12); NEUTROPHILS # (AUTO) 5.2 X10'3 (1.8-7.7); PLATELET COUNT 289 X10'3 (140-440); RED BLOOD COUNT 4.19 X10'6 (4.70-6.10); RED CELL DISTRIBUTION WIDTH 18.7 % (11.5-14.5); WHITE BLOOD COUNT 7.1 X10'3 (4.5-11.0)
[2023-02-20] MEDS: enoxaparin 30mg/0.3ml syringe SUBCUT SCH (07:41)
[2023-02-20] MEDS: iron polysaccharide complex 150mg capsule PO SCH (07:42)
[2023-02-20] MEDS: ascorbic acid 500mg tablet PO SCH (07:42)
[2023-02-20] MEDS: nicotine 21mg patch - 24 hr TD SCH ×2 (07:42→07:49)
[2023-02-20] MEDS: NUT.TX.IMPAIRED DIGEST FXN (Ensure Clear) 237 ML PO SCH (07:42)
[2023-02-20] MEDS: docusate sod 100mg capsule PO SCH (07:42)
[2023-02-20] MEDS: metroNIDAZOLE-Flagyl 500mg/NS 100 ML IV SCH (07:42)
[2023-02-20] MEDS: K and/or MAG REPLACEMENT MC SCH (08:00)
[2023-02-20] MEDS ORDERED: nicotine 14mg patch - 24hr TD SCH (08:00)
[2023-02-20 08:28] LABS: ALANINE AMINOTRANSFERASE 28 U/L (12-78); ALBUMIN 2.2 G/DL (3.4-5.0); ALBUMIN/GLOBULIN RATIO 0.5 (1.1-1.5); ALKALINE PHOSPHATASE 67 IU/L (46-116); ANION GAP 10 (8-16); ASPARTATE AMINO TRANSFERASE 38 U/L (10-37); BILIRUBIN,TOTAL 0.3 MG/DL (0.1-1.0); BLOOD UREA NITROGEN 10 MG/DL (7-18); BUN/CREATININE RATIO 8.2 (10.0-20.0); CALCIUM 8.4 MG/DL (8.5-10.1); CHLORIDE 106 MMOL/L (99-107); CREATININE 1.22 MG/DL (0.60-1.10); GLUCOSE 94 MG/DL (70-104); POTASSIUM 3.8 MMOL/L (3.5-5.1); SODIUM 140 MMOL/L (135-145); TOTAL CARBON DIOXIDE 24.2 MMOL/L (24-32); TOTAL PROTEIN 6.6 G/DL (6.4-8.2); eGFR 60 ML/MIN
[2023-02-20] MEDS: ciprofloxacin 250mg tablet PO SCH (09:57)
[2023-02-20] MEDS ORDERED: NICO-631 TD (09:59)
[2023-02-20] MEDS ORDERED: CIPR-202 PO (09:59)
[2023-02-20] MEDS ORDERED: IRON150C13 PO (09:59)
[2023-02-20] MEDS ORDERED: VITC500T PO (09:59)
[2023-02-20] MEDS ORDERED: ALBU8HFA PO (10:25)
[2023-02-20] MEDS ORDERED: HYDR-3972 PO (10:25)
[2023-02-20 10:45] VITALS: BP 168/78
--- NOTE | 2023-02-20 12:53 | NUR ---
pt dc'd home. all dc instructions explained to patient with patient verbalizing understanding regarding plan of care. pt going home with a irene drain. instructions printed and explained on irene monitoring. pt will make his own follow up appts. pt did have another bowel movement this morning and is tolerating solid food. abdomen continues to have hypoactive bowel sounds and pt has positive flatus. pt left via wc, a/ox3 vss and pain controlled
[2023-02-20] MEDS ORDERED: METR-159 PO (17:48)
== END 2023-02-20 12:53 | disposition home or self-care (01) | DRG 263 ==
LOC: ER 16:45 → ED HOLD 18:14 → PCU 3S 23:01 → ICU 2S 02-13 22:00 → PCU 3S 02-15 10:46
PROVIDERS: ADMIT Internal Medicine; ATTEND Internal Medicine
PROC: 8E0W4CZ Robotic Assisted Procedure of Trunk Region, Percutaneous Endoscopic Approach (ICD-10-PCS; 2023-02-13)
PROC: 0FT44ZZ Resection of Gallbladder, Percutaneous Endoscopic Approach (ICD-10-PCS; principal; 2023-02-13 16:51)
DX: K80.00 Calculus of gallbladder with acute cholecystitis without obstruction (principal); N17.9 Acute kidney failure, unspecified; K56.7 Ileus, unspecified; F17.210 Nicotine dependence, cigarettes, uncomplicated; R09.02 Hypoxemia; Z96.642 Presence of left artificial hip joint; J44.9 Chronic obstructive pulmonary disease, unspecified; E66.9 Obesity, unspecified; R91.8 Other nonspecific abnormal finding of lung field; Y90.9 Presence of alcohol in blood, level not specified; J98.11 Atelectasis; N18.9 Chronic kidney disease, unspecified; E61.1 Iron deficiency; F10.939 Alcohol use, unspecified with withdrawal, unspecified; Z88.5 Allergy status to narcotic agent; Z79.899 Other long term (current) drug therapy; Z82.49 Family history of ischemic heart disease and other diseases of the circulatory system; Z68.29 Body mass index [BMI] 29.0-29.9, adult
CPT/HCPCS: 36410; 36415; 36600; 71045; 71250; 74176; 76700; 76942; 80048; 80053; 80320; 82570; 82803; 83540; 83550; 83605; 83690; 83735; 84100; 84145; 84300; 84484; 85007; 85008; 85018; 85025; 85610; 85730; 86885; 86900; 86901; 87040; 87081; 93005; 93306; 94640; 94760; 97116; 97161; 97530; 99285; A4215; A4333; A4615; A4618; A4620; A5200; A6213; A6258; A6402; A6449; A7000; C1751; G0378; J0690; J0744; J1650; J1756; J2175; J2250; J2270; J2370; J2405; J2543; J2704; J2710; J3010; J3490; J7030; J7040; J7042; J7050; J7120